=== PATIENT | male | born 1950 | race Caucasian/White ===

== ENCOUNTER → 2023-10-11 06:28 | Day surgery (SDC) | payer MEDICARE, OTHER, SELFPAY | LOC: GI 06:28 | PROVIDERS: ATTENDING PHYSICIAN Internal Medicine; FAMILY PHYSICIAN Family Medicine | DX: R63.4 Abnormal weight loss (principal); C15.5 Malignant neoplasm of lower third of esophagus; R11.2 Nausea with vomiting, unspecified; K44.9 Diaphragmatic hernia without obstruction or gangrene; K31.89 Other diseases of stomach and duodenum | CPT/HCPCS: 43239; 88305; 88342; 88360 ==

== ENCOUNTER → 2023-10-16 13:13 | Outpatient (REF) | payer MEDICARE, OTHER, SELFPAY ==
[2023-10-16 14:41] LABS: Blood Urea Nitrogen 21 mg/dl (9-20)
== END ==
LOC: REG 13:13
PROVIDERS: ATTENDING PHYSICIAN Internal Medicine; FAMILY PHYSICIAN Family Medicine
DX: C15.9 Malignant neoplasm of esophagus, unspecified (principal)
CPT/HCPCS: 36415; 82565; 84520

== ENCOUNTER → 2023-10-17 12:54 | Outpatient (REF) | payer MEDICARE, OTHER, SELFPAY | LOC: HWRAD 12:54 | PROVIDERS: ATTENDING PHYSICIAN Internal Medicine Gastroenterology; FAMILY PHYSICIAN Family Medicine | DX: C15.9 Malignant neoplasm of esophagus, unspecified (principal) | CPT/HCPCS: 71260; 74177; Q9967 ==

== ENCOUNTER 2023-10-18 06:26 | Day surgery (SDC) | payer MEDICARE, OTHER, SELFPAY ==
[2023-10-18 09:40] VITALS: BP 109/62
[2023-10-18 09:43] VITALS: BMI 28.8
[2023-10-18 09:44] VITALS: BMI 28.8
[2023-10-18 11:43] VITALS: BP 116/71
[2023-10-18 12:00] VITALS: BP 141/78
[2023-10-18 12:15] VITALS: BP 109/60
[2023-10-18 13:02] VITALS: BP 117/72
== END 2023-10-18 13:00 | disposition home or self-care (01) ==
LOC: SDS 06:26
PROVIDERS: ATTENDING PHYSICIAN Internal Medicine Gastroenterology
DX: C15.5 Malignant neoplasm of lower third of esophagus (principal); K86.89 Other specified diseases of pancreas; C77.5 Secondary and unspecified malignant neoplasm of intrapelvic lymph nodes
CPT/HCPCS: 43242; 88172; 88173; 88305

== ENCOUNTER 2023-10-27 17:56 | Inpatient (IN) | payer MEDICARE, OTHER, SELFPAY ==
[2023-10-27] VITALS (7 sets, daily range): BP systolic 117–136; BP diastolic 71–86; BMI 28.8
[2023-10-27 15:12] LABS: % Basophils 0.4 % (0-2); % Eosinophils 1.8 % (0-6); % Immature Granulocytes 0.1 % (0-0.5); % Lymphocytes 19.1 % (20.5-51.1); % Monocytes 6.1 % (1.7-9.3); % Neutrophils 72.5 % (42.2-75.2); Absolute Eosinophils 0.1 10^3/uL (0-0.7); Absolute Lymphocytes 1.4 10^3/uL (1.2-3.4); Absolute Monocytes 0.4 10^3/uL (0.1-0.6); Absolute Neutrophils 5.2 10^3/uL (1.4-6.5); Hematocrit 39.3 % (39.0-52.0); Hemoglobin 14.1 g/dL (13.0-18.0); Mean Corp Hgb Conc. 35.9 g/dL (33.0-37.0); Mean Corpuscular Hgb 32.9 pg (27.0-31.0); Mean Corpuscular Volume 91.8 fL (80.0-94.0); Mean Platelet Volume 9.1 fL (7.4-10.4); Nucleated Red Blood Cells % 0 % (-); Platelet Count 236 10^3/uL (130-400); Red Blood Cell Count 4.28 10^6/uL (4.70-6.10); Red Cell Dist. Width 12.5 % (11.5-14.5); White Blood Cell Count 7.2 10^3/uL (4.8-10.8)
[2023-10-27 15:25] LABS: ALT (SGPT) 24 U/L (0-50); AST (SGOT) 31 U/L (17-59); Albumin 4.5 g/dl (3.5-5.0); Alkaline Phosphatase 69 U/L (38-126); Blood Urea Nitrogen 20 mg/dl (9-20); Calcium 10.1 mg/dl (8.4-10.2); Carbon Dioxide 26 mmol/L (22-30); Chloride 102 mmol/L (98-107); Glucose 93 mg/dl (70-99); Potassium 5.3 mmol/L (3.5-5.1); Sodium 138 mmol/L (135-145); Total Bilirubin 0.8 mg/dl (0.2-1.3); Total Protein 6.8 g/dl (6.3-8.2); eGFR > 60.00
--- NOTE | 2023-10-27 17:11 | ED.GENMED ---
History of Present Illness
General
Chief Complaint: Esophageal Problem
Source: patient and spouse
Exam Limitations: none
Time Seen by Provider: 10/27/23 15:49
Nursing documentation reviewed up to this point in time: agreed with
History of Present Illness
History of Present Illness:
Patient is a 73-year-old male recently diagnosed with esophageal cancer the beginning of October presents to the ER for evaluation. Patient is now not able to eat and was having trouble even getting liquids down. He is scheduled to see Dr. Magdaleno
on Sunday for a consult for a feeding tube. He is being followed by Dr. Villatoro of oncology and has seen GI here at [place].
He does complain of mild nausea.
Review of Systems
Review of Systems
Allergies reviewed?: Yes
Other source history: family
All Other Systems: ROS reviewed and negative except as documented in HPI and ROS
Constitutional: Denies fever, fatigue or chills
EENT: Reports other (Difficulty swallowing food/liquids)
Respiratory: Reports no symptoms
Cardiac: Reports no symptoms
ABD/GI: Reports nausea; Denies abdominal pain or vomiting
: Reports no symptoms
Musculoskeletal: Reports no symptoms
Skin: Reports no symptoms
Neurological: Reports no symptoms
Psychiatric: Reports no symptoms
Phy Exam
General Physical Exam
General Presentation: no apparent distress
General age: appears stated age
General Skin: warm and dry
General Habitus: normal
General Mental: alert
General Hydration: appears well hydrated
Cardiovascular Exam
Cardiovascular Exam: regular rate/rhythm, no murmur and normal peripheral pulses
Pulmonary Exam
Pulmonary Exam: lungs clear and no respiratory distress
Gastrointestinal Exam
Gastrointestinal Exam: non tender and soft
Neurological Exam
Neurological Exam: alert and oriented x3
Musculoskeletal Exam
Musculoskeletal Exam: full ROM
Skin Exam
Skin Exam: normal color and warm/dry
Psychiatric Exam
Psychiatric Exam: normal mood/affect
Course
Orders/Labs/Results
Orders:
Orders
10/27/23 Dinner
NPO
Allow oral meds: Yes
Allow clear liquids: Sips of Clears
10/27/23 15:06
Complete Blood Count/With Diff Urgent
Comprehensive Metabolic Panel Urgent
10/27/23 17:12
0.9% Sodium Chloride 1000 ml [Nss] 1,000 ml IV BOLUS
Ondansetron Injectable [Zofran] 4 mg IV NOW STA
10/27/23 17:13
Electrocardiogram (*1) Stat
Reason for Study: Abdominal Pain
EKG- Treatment ONCE
10/27/23 17:27
SURGICAL CONSULT Routine
Consulting Provider: Kevin Adams
Was physician already notified: Yes
10/27/23 17:39
Admit/Transfer Patient As Directed
Co-Sign Provider:
Level of Care: Inpatient admission
Assign to:: Medical/Surgical
Physician / Group: Eyal/hospitalist
Diagnosis: dysphagia
Reason for Hospitalization: dysphagia
Expected length of stay greater than two midnights?: Yes
ELOS- Estimated Length of Stay in days: 3
I certify the patient meets the requirements for IP care: Yes
Code Status As Directed
Resuscitation Status: Full Code
PRN Pain Medication Management As Directed
May give lesser potent ordered pain med per pt: Yes
preference::
Protocol:: Medication orders for pain may be administered in a
manner that supports deferring to patient preference
when the pt is:
- Requesting an ordered lesser potent pain medication.
Least to most potent pain medications are defined
as: acetaminophen < NSAID < tramadol < opioids
(morphine, oxycodone, hydromorphone).
- Requesting a lesser dose of the same medication IF
ORDERED.
- Requesting a less intrusive route of administration
if both routes are prescribed by the provider (PO <
IV).
10/27/23 21:02
0.9% Sodium Chloride 1000 ml [Nss] 1,000 ml IV 100 mls/hr
Bisacodyl [Dulcolax] 10 mg RECTAL [id number] PRN
Docusate W/Senna [Senokot-S] 1 tablet PO BIDPRN PRN
Enoxaparin Sodium [Lovenox] 40 mg SC QPM
HydrALAZINE [Apresoline] 10 mg IV Q4HPRN PRN
Lorazepam [Ativan] 0.5 mg IV Q8HPRN PRN
Polyethylene Glycol Powder [Miralax] 17 grams PO DAILYPRN PRN
10/27/23 21:02
Activity As Directed
Activity Level: As Tolerated
Vital Signs As Directed
Frequency: Per unit guidelines
DX Deep Vein Thrombosis Video Routine
10/27/23 22:00
Cpap [RESP] HS
Patient to use own unit?: Yes
Set Pressure (cm H2O): 10
Instructions: titrate to comfort
10/28/23 00:00
Ondansetron Injectable [Zofran] 4 mg IV Q6HPRN PRN
10/28/23 06:27
Basic Metabolic Panel IN AM
Complete Blood Count/No Diff IN AM
Magnesium IN AM
10/28/23 08:00
Pantoprazole [Protonix IV] 40 mg IV DAILY
10/29/23 06:00
Basic Metabolic Panel IN AM
Complete Blood Count/No Diff IN AM
Abnormal Lab Results
10/27/23
15:06
RBC 4.28 L 10^6/uL
(4.70-6.10)
MCH 32.9 H pg
(27.0-31.0)
Lymphocytes % 19.1 L %
(20.5-51.1)
Potassium 5.3 H mmol/L
(3.5-5.1)
10/27/23 15:06
10/27/23 15:06
Vital Signs
Initial and Last Documented VS:
Initial Vital Signs
Temp Pulse Resp BP Pulse Ox
98.4 F 84 20 117/81 98
10/27/23 14:41 10/27/23 14:41 10/27/23 14:41 10/27/23 14:41 10/27/23 14:41
Last Documented Vital Signs
Temp Pulse Resp BP Pulse Ox
97.4 F 74 18 129/73 97
10/28/23 15:00 10/28/23 15:39 10/28/23 15:00 10/28/23 15:39 10/28/23 15:00
MDM/Problems Addressed
Differential Diagnosis Includes:
not limited to dysphagia, dehydration
MDM/Problems Addressed:
Patient is a 73-year-old male recent diagnosis of esophageal cancer in October is followed by oncology here at [place] as well as GI. Patient has an appointment with surgery for consult on Sunday for feeding tube because he has dysphagia however
recently dysphagia is getting worse he is not able to eat now barely able to drink water. Patient is in no acute distress abdomen soft and nontender stable labs.
will admit for hydration dysphagia. Patient was given fluids here nausea medicine here. Via [facility] text surgery, GI and oncology made aware.
Chronic conditions affecting care:
Recent diagnosis of esophageal cancer
*Pulse Oximetry
Patient hypoxic: no
*Critical Care Note
Total Time (30-74mins, 75-104mins- exclusive of procedures): Not Applicable
ED Attending Note
-
Portions of this chart may have been created with voice recognition software.� Occasional wrong word or��sound alike� substitutions may have occurred due to the inherent limitations of voice recognition software.
Discharge Plan
Departure
Patient Disposition: Admit
Date of Disposition: 10/27/23
Time of Disposition: 17:15
Admit to: Med/Surg
Admit to doctor: hospitalist
Presentation/result/management discussed w/ accepting MD/DO: Hospitalist
Patient with high blood pressure during this ER visit?: No
Condition: Fair
Covid-19: Not Applicable
Discharge Problem:
Dysphagia, Esophageal cancer
Interventions
Interventions:
*Risk Screen - Suicide Last Done: 10/27/23 18:00
*General Assessment Last Done: 10/27/23 18:00
*Neglect/Abuse Screening Last Done: 10/27/23 18:00
ED- Fall Risk Assessment Last Done: 10/27/23 18:00
*ED COVID-19 Vaccine History Last Done: 10/27/23 21:00
*Nursing Disposition Last Done: 10/27/23 20:19
BY-Fsuzup-Xfyrpokicn Assessment Last Done: 10/27/23 18:00
Discharge Date and Time
Discharge Date/Time: 10/27/23 20:19
--- NOTE | 2023-10-27 17:24 | HPS.HSE ---
Family Physician
-
Family Physician: Sony Montoya
Chief Complaint
-
dysphagia
History of Present Illness
HPI: 73-year-old male who was recently diagnosed with esophageal cancer in October 2023, other PMH include hypertension, KAILEE, hyperlipidemia, depression; p/w inability to eat or drink liquid. He complains of mild nausea.
Denies to other symptoms.
He is scheduled to see Dr. Magdaleno on Saturday 10/28 for feeding tube eval. He is being followed by Dr. Villatoro from oncology.
Medical History
Past Medical History
Past Medical History: Reports Other
Additional Past Medical History:
esophageal cancer
hypertension,
KAILEE,
hyperlipidemia,
depression
Past Surgical History: Reports Other
Additional Past Surgical History:
Left knee and left shoulder surgery
Social History
Tobacco: Non-smoker
Alcohol: None
Personal:
Living: With Family ()
Family History
Family History: Not pertinent
Allergies / Home Medications
Allergies reflects when Allergies were last updated in [facility].
Home Medications with original date entered in [facility]
Allergy/Medication List:
Medications on admission are unable to be verified or confirmed at this time.
Review of Systems
-
Abdomen/GI: Reports Nausea and Other (Dysphagia to solid and liquid)
Physical Exam
Vital Signs
Vital Signs
Temp Pulse Resp BP Pulse Ox
36.9 C 84 20 117/81 98
10/27/23 14:41 10/27/23 14:41 10/27/23 14:41 10/27/23 14:41 10/27/23 14:41
Physical Exam
General: Well Developed, Well Nourished, No Apparent Distress, Comfortable and Conversant
HEENT: NormoCephalic, Moist mucous membranes, Atraumatic, Nose Appears Normal and Ears Appear Normal
Respiratory: Clear and Non Labored Respirations; No Accessory Resp Muscle Use
Cardiac: S1/S2 and Regular Rhythm; No Murmur or Rub
GI: Soft, Non Tender, Non Distended and Normal Bowel Sounds; No Organomegaly
Rectal: Deferred by Provider
Musculoskeletal: No Edema
Skin: Warm and Dry; No Rash
Neuro: Awake and Alert
Psych: Calm and Intact Judgment/Insight
Laboratory Results
-
10/27/23 15:06
10/27/23 15:06
Laboratory Results
Total Bilirubin 0.8 mg/dl (0.2-1.3) 10/27/23 15:06
AST 31 U/L (17-59) 10/27/23 15:06
ALT 24 U/L (0-50) 10/27/23 15:06
Alkaline Phosphatase 69 U/L (38-126) 10/27/23 15:06
Data Reviewed
-
Lab Data: Labs Reviewed by me
Impression/Plan
-
HPI: 73-year-old male who was recently diagnosed with esophageal cancer in October 2023, other PMH include hypertension, KAILEE, hyperlipidemia, depression; p/w inability to eat or drink liquid. He complains of mild nausea.
Denies to other symptoms.
He is scheduled to see Dr. Magdaleno on Saturday 10/28 for feeding tube eval. He is being followed by Dr. Villatoro from oncology.
A/P:
# Dysphagia due to esophageal cancer
General Surgery consult for PEG tube eval
keep n.p.o. for now
Continue IV fluid
IV PPI for gastric protection
# hypertension
Will use IV hydralazine as needed for BP control
# KAILEE
Cont CPAP that was brought in from home
# hyperlipidemia
# anxiety/depression
replace [employer]EL[employer] PO Ativan with low dose IV Ativan PRN
DVT ppx: Lovenox SQ
FC
[2023-10-27] MEDS: ZOFRAN 4 MG IV (17:44)
[2023-10-27] MEDS: NSS 1000 IV ×2 (17:48→22:24)
--- NOTE | 2023-10-27 21:00 | PTCARENOTE ---
Patient arrived to [facility]- from ED via stretcher, alert and oriented, family at bedside. Patient ambulated from stretcher to bed with standby assist. Patient with no complaints at this time. Med surg orders, HRR, lungs clear. Difficulty swallowing and
keeping food/drink down at home prompted admission -- patient states he has appointment Saturday 10/[address] Magdaleno for evaluation of PEG tube. Recently diagnosed with Esophageal cancer. Patient has own bottle of Ativan at bedside -- explained
policy and procedure of sending to pharmacy -- patient adamant on using his own Ativan while here. Spoke with SALINA Yoder, orders changed to reflect patient using own controlled medication. Pharmacy verified, medication stored in locked cabinet.
IVFs started per MD orders, patient resting in bed comfortably using own CPAP from home -- respiratory aware. Call [place] within reach. Will monitor.
[2023-10-27] MEDS: LOVENOX 40 MG SC (22:21)
[2023-10-27] MEDS: NON-FORMULARY ITEM 1 UNIT PO (23:27)
[2023-10-28 07:00] VITALS: BP 144/79
[2023-10-28 07:00] LABS: Hematocrit 39.2 % (39.0-52.0); Mean Corp Hgb Conc. 35.7 g/dL (33.0-37.0); Mean Corpuscular Volume 95.1 fL (80.0-94.0); Mean Platelet Volume 9.7 fL (7.4-10.4); Platelet Count 216 10^3/uL (130-400); Red Blood Cell Count 4.12 10^6/uL (4.70-6.10); Red Cell Dist. Width 12.2 % (11.5-14.5); White Blood Cell Count 5.8 10^3/uL (4.8-10.8)
[2023-10-28 07:29] LABS: Blood Urea Nitrogen 18 mg/dl (9-20); Calcium 9.6 mg/dl (8.4-10.2); Carbon Dioxide 26 mmol/L (22-30); Chloride 104 mmol/L (98-107); Estimated Creatinine Clearance 73 ml/min; Glucose 73 mg/dl (70-99); Magnesium 2.2 mg/dl (1.6-2.3); Sodium 140 mmol/L (135-145); eGFR > 60.00
[2023-10-28] MEDS: PROTONIX IV 40 MG IV (08:08)
[2023-10-28] MEDS: NSS (PRESERVATIVE FREE) 10 ML IV (08:08)
--- NOTE | 2023-10-28 10:02 | W.PN.HOSP.TC ---
Today's Communication/Plan
-
see A/P
Assessment / Plan
Assessment / Plan
HPI: 73-year-old male who was recently diagnosed with esophageal cancer in October 2023, other PMH include hypertension, KAILEE, hyperlipidemia, depression; p/w inability to eat or drink liquid. He complains of mild nausea.
Denies to other symptoms.
He is scheduled to see Dr. Magdaleno on Saturday 10/28 for feeding tube eval. He is being followed by Dr. Villatoro from oncology.
A/P:
# Dysphagia due to esophageal cancer
General Surgery consult for PEG tube eval
keep n.p.o. for now
Continue IV fluid
IV PPI for gastric protection
# hypertension
Will use IV hydralazine as needed for BP control
# KAILEE
Cont CPAP that was brought in from home
# hyperlipidemia
# anxiety/depression
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
DVT ppx: Lovenox SQ
FC
DW son at bedside. Answered all questions.
Anticipated Discharge: 24 - 48 hours
Subjective/Interval History
-
Date of Service: October 28, 2023
Objective Data
-
Labs:
Laboratory Results
10/28/23
06:27
WBC 5.8
Hgb 14.0
Hct 39.2
Plt Count 216
Sodium 140
Potassium 5.0
Chloride 104
Carbon Dioxide 26
BUN 18
Creatinine 1.0
Glucose 73
Calcium 9.6
Vital Signs:
Vital Signs
Temp Pulse Resp BP Pulse Ox
36.6 C 73 18 144/79 96
10/28/23 07:00 10/28/23 07:00 10/28/23 07:00 10/28/23 07:00 08/25/24 07:45
I&O
10/27/23 10/28/23 10/29/23
06:59 06:59 06:59
Intake Total 0 / 0
Balance 0 / 0
Review of Systems
-
Abdomen/GI: Reports Other (dysphagia)
Physical Exam
-
General: Well Developed, Well Nourished, No Apparent Distress, Comfortable and Conversant; Negative Respiratory Distress
HEENT: Normocephalic, Atraumatic, Nose Appears Normal and Ears Appear Normal; Negative Oxygen
Respiratory: Clear to Auscultation and Non Labored Respirations; Negative Accessory Resp Muscle Use
Cardiac: Regular Rhythm and S1/S2
GI: Soft, Nontender, Nondistended and Normal Bowel Sounds
Skin: Warm and Dry
Neuro: Awake, Alert, Oriented and AO x 3
Psych: Calm and Intact Judgement/Insight
Data Reviewed
-
Labs: Labs Reviewed by me
[2023-10-28] MEDS: NSS 1000 IV ×2 (11:02→21:39)
--- NOTE | 2023-10-28 11:34 | CON.GS ---
Consultation
-
Date/Time Consultation Requested: 10/27/23 1727
Date/Time Consultation Performed: 10/27/23 0845
Requesting Provider: Eyal
Medical History
-
Chief Complaint: Inability to swallow
History of Present Illness:
Mr Carlos is a 73 yo male with a h/o UHR repair with mesh and recently diagnosed esophageal cancer earlier this month who presents with progressive difficulty swallowing. He has been following with Dr. Villatoro as an outpatient with plans to begin
chemotherapy in the near future. He had an appointment with Dr. Magdaleno tomorrow scheduled as an OP to discuss J-tube placement prior to chemotherapy given progressive dysphagia. He was initially tolerating soft foods and liquids at home but over
the past 3-4 days, he has not even been able to tolerate liquids causing him to present through the ED last night for evaluation. He currently denies nausea. He denies vomiting or pain.
Past Medical History
Past Medical History: HTN, Hypercholesterolemia and Other (KAILEE)
Past Surgical History: Hernia Repair (UHR with mesh about 20 years ago)
Social History
Tobacco: Non-Smoker
Alcohol: None
Living: With Family
Allergies / Home Medications
Allergy/AdvReac Type Severity Reaction Status Date / Time
shellfish derived Allergy Intermediate Vomiting Verified 10/27/23 14:41
iodine Allergy Mild Hives Verified 10/27/23 14:40
NKA - No Known Allergies Allergy Pharmacy Uncoded 10/18/23 09:41
to Review
�Medication �Instructions �Recorded �Confirmed �Type
escitalopram oxalate 20 mg tablet 20 mg PO DAILY Depression 10/18/23 10/27/23 History
lisinopril 20 mg tablet 20 mg PO DAILY Blood Pressure 10/18/23 10/27/23 History
memantine 5 mg tablet 5 mg PO DAILY Dementia 10/18/23 10/27/23 History
ondansetron 4 mg disintegrating 4 mg translingual DAILYPRN PRN 10/18/23 10/27/23 History
tablet nausea/vomiting
pantoprazole 40 mg tablet,delayed 40 mg PO DAILY Gastrointestinal 10/18/23 10/27/23 History
release Issue
polyethylene glycol 3350 17 gram 8.5 g PO BID Constipation 10/18/23 10/27/23 History
oral powder packet (Miralax)
rosuvastatin 5 mg tablet 5 mg PO DAILY High Cholesterol 10/18/23 10/27/23 History
sucralfate 100 mg/mL oral 10 ml PO ACHS Gastrointestinal 10/18/23 10/27/23 History
suspension Issue
lorazepam 1 mg tablet 1 mg PO BIDPRN PRN anxiety 10/27/23 10/27/23 History
Review of Systems
-
History Source: Patient and Family
All other systems: Negative unless noted
A 10 point review of systems was completed, and was negative except as per HPI.
Physical Exam
Vital Signs
Temp Pulse Resp BP Pulse Ox
97.8 F 73 18 144/79 96
10/28/23 07:00 10/28/23 07:00 10/28/23 07:00 10/28/23 07:00 10/28/23 07:45
10/27/23 10/28/23 10/29/23
06:59 06:59 06:59
Actual Weight 94.892 kg
Body Mass Index (BMI) 28.8
Lab Results
10/28/23 06:27
10/28/23 06:27
WBC 5.8 10^3/uL (4.8-10.8) 10/28/23 06:27
Hgb 14.0 g/dL (13.0-18.0) 10/28/23 06:27
Hct 39.2 % (39.0-52.0) 10/28/23 06:27
Plt Count 216 10^3/uL (130-400) 10/28/23 06:27
Abs Immat Gran (auto) 0.0 10^3/uL (0-0.05) 10/27/23 15:06
Neutrophils % 72.5 % (42.2-75.2) 10/27/23 15:06
Physical Exam
General: Well Developed and Well Nourished
HEENT: Moist Mucous Membranes
Respiratory: Non Labored Respirations
GI: Soft, Non Tender and Non Distended
Skin: Warm and Dry
Neuro: Awake, Alert and AO x 3
Psych: Calm
Data Reviewed
-
Labs: Labs Reviewed by me, Discussed with Physician, Discussed with Patient and Discussed with Family
Old Records: Reviewed
Assessment / Plan
-
73 yo male with h/o UHR with mesh and newly diagnosed esophageal cancer with progressively worsening dysphagia presenting d/t inability to tolerate PO intake for 3-4 days.
AFVSS. labs stable.
--Continue NPO/IVF
--Pending OR availability will plan laparoscopic placement of J-tube in the OR tomorrow vs Sunday
--Medical management as per primary team
[2023-10-28 15:00] VITALS: BP 106/64
[2023-10-28 15:39] VITALS: BP 129/73
--- NOTE | 2023-10-28 16:09 | CM ---
Reviewed chart, patient stated that he lives in a two story home with one step to enter. He described himself as independent with ADLs, personal care, dressing and bathing. He ambulates without device. He can cook, clean, do ecotherapist and
laundry. He can drive and can get to his appointments and does all of his shopping.
Patient denied DME in his home.
He has never had VN services
He has not been to a SNF.
Patient has a prescription plan and uses, [facility] for all of his medication.
Patient's PCP is Dr. Sony Montoya.
Plan: Case management will continue to follow and assist with discharge planning. Home when Peg placed and medically stable.
[2023-10-28] MEDS: LOVENOX 40 MG SC (17:08)
[2023-10-28] MEDS: NON-FORMULARY ITEM 1 UNIT PO (21:35)
[2023-10-28 23:29] VITALS: BP 144/85
[2023-10-29] VITALS (10 sets, daily range): BP systolic 111–146; BP diastolic 56–90; BMI 28.8
[2023-10-29 07:24] LABS: INR 1.07; PT 13.7 Sec (11.4-14.6)
[2023-10-29 07:25] LABS: APTT 29.6 Sec (23.4-35.0)
--- NOTE | 2023-10-29 07:31 | W.SUR.PREOP ---
Pre-Operative Surgical Note
-
I have examined this patient prior to the performance of the scheduled procedure. Patient tentatively added on for a laparoscopic jejunostomy tube placement today.
The patient's condition is unchanged from the time of the current History and
Physical and the patient is able to undergo the scheduled procedure.
[2023-10-29 07:39] LABS: Hematocrit 38.4 % (39.0-52.0); Hemoglobin 13.7 g/dL (13.0-18.0); Mean Corp Hgb Conc. 35.7 g/dL (33.0-37.0); Mean Corpuscular Hgb 33.2 pg (27.0-31.0); Mean Platelet Volume 9.4 fL (7.4-10.4); Platelet Count 224 10^3/uL (130-400); Red Blood Cell Count 4.13 10^6/uL (4.70-6.10); Red Cell Dist. Width 12.3 % (11.5-14.5); White Blood Cell Count 6.9 10^3/uL (4.8-10.8)
[2023-10-29] MEDS: NSS 1000 IV (07:44)
[2023-10-29] MEDS: NSS (PRESERVATIVE FREE) 10 ML IV (07:45)
[2023-10-29] MEDS: PROTONIX IV 40 MG IV (07:45)
[2023-10-29 08:29] LABS: Blood Urea Nitrogen 16 mg/dl (9-20); Calcium 9.4 mg/dl (8.4-10.2); Carbon Dioxide 22 mmol/L (22-30); Chloride 105 mmol/L (98-107); Estimated Creatinine Clearance 81 ml/min; Glucose 53 mg/dl (70-99); Sodium 141 mmol/L (135-145); eGFR > 60.00
[2023-10-29] MEDS: D5/0.9% SODIUM CHLORIDE 1000 IV (08:49)
--- NOTE | 2023-10-29 10:28 | W.PN.HOSP.TC ---
Today's Communication/Plan
-
see outlined plan
Assessment / Plan
Assessment / Plan
Assessment:
Dysphagia due to esophageal cancer (Stage 3 per family)
- GS consulted for feeding tube placement today
- dietary consult for TF recs - bolus feeds at home
- continue IVF with dextrose for low sugars
- continue IV PPI
Essential HTN
- holding BP meds
- IV hydralazine prn
KAILEE on home CPAP
HLD - hold statin
anxiety/depression
- replace CAPTAIN/AIRLINE PILOT PO Ativan with low dose IV Ativan PRN
- holding Lexapro
- hold Memantine (for memory issues)
Hyperkalemia - resolved
DVT ppx: Lovenox
Code: Full
Anticipated Discharge: > 48 hours
Subjective/Interval History
-
Date of Service: October 29, 2023
no new complaints
Objective Data
-
Labs:
Laboratory Results
10/29/23
06:32
WBC 6.9
Hgb 13.7
Hct 38.4 L
Plt Count 224
PT 13.7
INR 1.07
APTT 29.6
Sodium 141
Potassium 5.0
Chloride 105
Carbon Dioxide 22
BUN 16
Creatinine 0.9
Glucose 53 L*
Calcium 9.4
Vital Signs:
Vital Signs
Temp Pulse Resp BP Pulse Ox
97.5 F 72 12 139/65 96
10/29/23 07:00 10/29/23 07:00 10/29/23 07:00 10/29/23 07:00 10/29/23 07:30
I&O
10/28/23 10/29/23 10/30/23
06:59 06:59 06:59
Intake Total 1200 / 1200
Output Total 1050 / 1050
Balance 150 / 150
Physical Exam
-
General: No Apparent Distress
HEENT: Normocephalic and Atraumatic
Respiratory: Negative Wheezes
Cardiac: Regular Rhythm and S1/S2
GI: Soft and Nontender
Musculoskeletal: No Edema
Neuro: AO x 3
Hematologic / Lymphatic: No Lymphadenopathy
Psych: Calm
Data Reviewed
-
Total Time Spent with Patient (in minutes): 41
Labs: Labs Reviewed by me
[2023-10-29 12:15] LABS: Glucose - Point of Care 72 mg/dl (70-99)
--- NOTE | 2023-10-29 13:18 | CM ---
Spoke with attending who stated that patient will go home with tube feedings. Will ask him what VN he would prefer as he will need them post discharge.
Plan: Case management will continue to follow and assist with discharge planning. Home with tube feeds.
--- NOTE | 2023-10-29 14:38 | W.IMMPOSTOP ---
Surgical Immed Post Op Note
-
Primary Surgeon: Kevin Adams MD
Assisting Surgeon: None
Pre-op Diagnosis: Esophageal cancer, dysphagia/malnutrition
Post-op Diagnosis: Same
Procedure Performed: Laparoscopic jejunostomy tube placement
Anesthesia Type: General
Specimen / Cultures: None
Estimated Blood Loss: 3 cc
Complications: None
Operative Findings: Three 5 mm port. Krista jejunostomy tube placed. Balloon inflated to 3 cc of sterile water. Anti-torsion stitch placed
POST OP PLAN:
Imaging: None
Labs: Routine AM
Diet: Okay to start trickle tube feeds tonight 10/29/2023, advance to goal as tolerated tomorrow. Okay for p.o. diet as tolerated. No meds (including liquid ones) through the J-tube as they will clog the tube. Flush J-tube often especially after
each use.
Analgesia: IV Tylenol, Toradol, Dilaudid as needed
Neuro/vascular checks: q4h
AC/AP: Hold Therapeutic AC, Ok for DVT PPx
Activity: Ad Manju
Wound/Incisions/Drains: Routine
Abx: None
Dispo: RNF
--- NOTE | 2023-10-29 14:42 | OR.RPT ---
Addendum entered and electronically signed by Kevin Adams MD 10/31/23 11:08:
Please remove malnutrition as one of the pre/post operative diagnoses.
Original Note:
Operative Report
Operative Report
Patient Name: Francisco Carlos
: 1950
Date of Operation: 10/29/2023
Preoperative Diagnosis: Esophageal cancer, dysphagia, malnutrition
Postoperative Diagnosis: Same
Procedure(s):
1. Laparoscopic jejunostomy tube (Krista technique)
Surgeon(s):
Dr. Adams
Audit Associate(s):
PURA Streeter
Anesthesia: General
Estimated Blood Loss: 3 cc
Urine Output: None
Drains/Lines/Implants: 16 Venezuelan J-tube with 3 cc of sterile water
Specimens:
None
HPI/Surgical Indications:
This is a 73-year-old male with recently diagnosed esophageal cancer that has progressively worsened dysphagia now with malnutrition. General surgery consulted to place a laparoscopic jejunostomy tube. Risks/Benefits/Alternatives were discussed at
length, and the patient agreed to proceed with surgery.
Operative Findings: Three 5 mm ports. Krista jejunostomy tube placed. Balloon inflated to 3 cc of sterile water. Anti-torsion stitch placed
Procedure Description:
The patient was brought to the Operating Room and placed in the supine position with the right arm tucked. IV antibiotics were infused and Venodyne stockings placed. Following uneventful induction of general endotracheal anesthesia, the abdomen
was prepped and draped in the usual sterile fashion. A team timeout was performed confirming the patient's name, procedure and that appropriate preoperative medications have been administered. The abdomen was entered using left upper quadrant
Veress technique which required a single pass followed by a right upper quadrant 5 mm Optiview entry. Pneumoperitoneum to 15 mmHg was established and confirmed that no injury had occurred on entry. The patient had a history of an open umbilical
hernia repair but no mesh or adhesions were noted in the midline. We placed 2 additional 5 mm ports in the left and right lower quadrants. Patient was placed in Trendelenburg and the transverse mesocolon was identified followed by the ligament of
Treitz. Once we confirmed our orientation we identified a segment of jejunum roughly 20 cm from the ligament of Treitz and saw that it could oppose the anterior abdominal wall without any tension. We then placed 4 Krista/stay sutures around our
planned enterotomy site with 2-0 silk, as well as one distal antitorsion stitch and brought them through the anterior abdominal wall using a Senthil Sanchez suture passing device. Then using a laparoscopic dilator kit we passed a 16 Venezuelan
jejunostomy tube through the abdominal wall into our enterotomy and passed it distally through the small bowel, this was a little challenging and to take some manipulation of the bowel to ensure that the tube lay straight without coiling or kinking.
Satisfied the balloon was inflated with 3 cc of sterile water and the stay sutures were tied down. At this point the ports were removed under direct visualization. The lower midline port was closed with simple interrupted 2-0 PDS suture. The
port sites at the skin level was then closed with 4 Monocryl followed by glue. The jejunostomy port site was dressed with a single drain sponge. An abdominal binder was placed to help protect the jejunostomy tube from inadvertent dislodgment.
Overall, the patient tolerated the procedure well and was taken to the Recovery Room postoperatively in stable condition.
I was the attending physician and performed the procedure with no assistance. I was present for all portions of the case
Kevin Adams MD
[2023-10-29] MEDS: LOVENOX 40 MG SC (17:47)
[2023-10-29] MEDS: NON-FORMULARY ITEM PO (22:56)
[2023-10-30 03:00] VITALS: BP 144/80
[2023-10-30] MEDS: D5/0.9% SODIUM CHLORIDE 1000 IV (04:05)
[2023-10-30 06:38] LABS: Hematocrit 37.8 % (39.0-52.0); Hemoglobin 13.9 g/dL (13.0-18.0); Mean Corp Hgb Conc. 36.8 g/dL (33.0-37.0); Mean Corpuscular Hgb 33.8 pg (27.0-31.0); Mean Platelet Volume 9.6 fL (7.4-10.4); Platelet Count 224 10^3/uL (130-400); Red Blood Cell Count 4.11 10^6/uL (4.70-6.10); Red Cell Dist. Width 11.9 % (11.5-14.5)
[2023-10-30 07:02] LABS: Blood Urea Nitrogen 13 mg/dl (9-20); Calcium 9.5 mg/dl (8.4-10.2); Carbon Dioxide 24 mmol/L (22-30); Chloride 103 mmol/L (98-107); Estimated Creatinine Clearance 92 ml/min; Glucose 186 mg/dl (70-99); Potassium 4.7 mmol/L (3.5-5.1); Sodium 139 mmol/L (135-145); eGFR > 60.00
[2023-10-30 07:20] VITALS: BP 150/78
[2023-10-30] MEDS: PROTONIX IV 40 MG IV (09:06)
[2023-10-30] MEDS: NSS (PRESERVATIVE FREE) 10 ML IV (09:06)
[2023-10-30 11:00] VITALS: BP 138/78
--- NOTE | 2023-10-30 12:30 | PTCARENOTE ---
1230 Tube feeding increased to 40ml/hr. No residual aspirated from J tube. Patient and family made aware the goal in 70ml/hr. Patient verbalized understanding.
--- NOTE | 2023-10-30 12:43 | W.PN.HOSP.TC ---
Addendum entered and electronically signed by Carla Nieves MD 10/30/23 15:34:
enteral feedings will be required greater than 90 days
Original Note:
Today's Communication/Plan
-
advance TF to goal to assess tolerance
DC planning
Assessment / Plan
Assessment / Plan
Assessment:
Dysphagia due to esophageal cancer (Stage 3 per family)
- s/p Laparoscopic jejunostomy tube placement 10/28. Follow GS recs
- continue TF, advance to goal
- will need home tube feeds setup, along with VN and prescribing doctor sorted before discharge
- meds: orally as tolerated
Essential HTN
- resume BP meds orally
- IV hydralazine prn
KAILEE on home CPAP
HLD - resume statin
anxiety/depression
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
- resume Lexapro
- resume Memantine (for memory issues)
Hyperkalemia - resolved
DVT ppx: Lovenox
Code: Full
Anticipated Discharge: 24 - 48 hours
Subjective/Interval History
-
Date of Service: October 30, 2023
tolerating trickle feeds
Objective Data
-
Labs:
Laboratory Results
10/30/23
06:14
WBC 8.0
Hgb 13.9
Hct 37.8 L
Plt Count 224
Sodium 139
Potassium 4.7
Chloride 103
Carbon Dioxide 24
BUN 13
Creatinine 0.8
Glucose 186 H
Calcium 9.5
Vital Signs:
Vital Signs
Temp Pulse Resp BP Pulse Ox
98.1 F 72 17 138/78 96
10/30/23 11:00 10/30/23 11:00 10/30/23 11:00 10/30/23 11:00 10/30/23 11:00
I&O
10/29/23 10/30/23 10/31/23
06:59 06:59 06:59
Intake Total 1200 / 1200 1060 / 1060
Output Total 1050 / 1050 1225 / 1225
Balance 150 / 150 -165 / -165
Physical Exam
-
General: No Apparent Distress
HEENT: Normocephalic and Atraumatic
Respiratory: Negative Wheezes
Cardiac: Regular Rhythm and S1/S2
GI: Soft and Other (J tube)
Genito-urinary: No Costovertebral Tender
Musculoskeletal: No Edema
Neuro: AO x 3
Hematologic / Lymphatic: No Lymphadenopathy
Psych: Calm
Data Reviewed
-
Total Time Spent with Patient (in minutes): 41
Labs: Labs Reviewed by me
--- NOTE | 2023-10-30 13:22 | W.PN.GS2 ---
Today's Communication / Plan
-
Tube feeds to goal, dispo planning
Assessment / Plan
-
This is a 73-year-old male with a recent diagnosis of esophageal cancer now with dysphagia. Postoperative day 1 from a laparoscopic jejunostomy tube placement. Doing well, expected postoperative course.
Okay to advance tube feeds to goal.
Begin dispo planning, will need to equipment and VNA set up for home.
Patient can follow-up with me in 2 to 3 weeks, happy to coordinate visits with oncology.
All questions answered, patient agreeable to plan of care above.
Discharge instructions updated and reviewed with patient and over the phone.
Time Spent
Total Time Spent with Patient (in minutes): 20
Subjective Data
-
Date of Service: October 30, 2023
Interval Events:
No acute events overnight. Slept well. Pain Controlled. Denies Nausea/Vomiting, +bowel function. Tolerating tube feeds at a rate of 20 cc/h.
Objective Data
-
Intake and Output
10/29/23 10/30/23 10/31/23
06:59 06:59 06:59
Intake Total 1200 / 1200 1060 / 1060
Output Total 1050 / 1050 1225 / 1225
Balance 150 / 150 -165 / -165
Intake:
Oral fluids 0 / 0 0 / 0
IV fluids (Total) 1200 / 1200 1060 / 1060
Norm 100 / 100
IV piggybacks 0 / 0
Output:
Urine, Voided 1050 / 1050 1225 / 1225
Other:
Number of approximated MODERATE 2
amounts of urine
Vital Signs
Temp Pulse Resp BP Pulse Ox
98.1 F 72 17 138/78 96
10/30/23 11:00 10/30/23 11:00 10/30/23 11:00 10/30/23 11:00 10/30/23 11:00
Lab Results
10/30/23 06:14
10/30/23 06:14
Calcium 9.5 mg/dl (8.4-10.2) 10/30/23 06:14
Magnesium 2.2 mg/dl (1.6-2.3) 10/28/23 06:27
Total Bilirubin 0.8 mg/dl (0.2-1.3) 10/27/23 15:06
AST 31 U/L (17-59) 10/27/23 15:06
ALT 24 U/L (0-50) 10/27/23 15:06
Alkaline Phosphatase 69 U/L (38-126) 10/27/23 15:06
Total Protein 6.8 g/dl (6.3-8.2) 10/27/23 15:06
Albumin 4.5 g/dl (3.5-5.0) 10/27/23 15:06
Physical Exam
-
GENERAL/NEURO: Awake, Alert, no distress
CHEST: Unlabored breathing on RA
ABDOMEN: Soft, Non-Tender, Non-Distended, incisions clean dry and intact. Jejunostomy feeding tube in place
[2023-10-30] MEDS: LEXAPRO 20 MG PO (13:54)
--- NOTE | 2023-10-30 14:57 | CM ---
Addendum entered by Quin Newman 10/30/23 16:33:
Left VM for primer and powder canning leader x [phone]
spoke with GI office, they will follow for enteral feeds post hospitalization as long as a primer and powder canning leader is following.
Faxed info to [facility].
Need to fax nutrition documentation and order sheet to [facility] in am.
Original Note:
Spoke with Patient bedside.
Daughter Julieta on the phone, son in law in the room.
Patient will be d/c home to former spouses home
Address: [address] [address]
VN options discussed with patient, [facility] chosen referral sent.
Options reviewed for tube feeds/nutrition- [facility].
Spoke with Claire from [facility]
Per Claire/[facility] they will need:
-48 hours to get medicare approval, will probably be covered 80% by medicare, 20% by secondary.
-peg tube surgery report
-MD note on progress note stating why enteral feeds are required and must include >90 days
-H+P
-Dietary/nutrition notes
-Swallow study if done
-MD following for enteral feed orders
-Bolus vs continuous
-VN agency
CM will update MD and family.
TC to [facility] [phone]- spoke with emil Moya to see if they will be ordering Tube feedings post d/c.
Plan: home with VN and enteral feeds
[facility]

[facility]
fax# [phone]
[2023-10-30 15:15] VITALS: BP 141/84
[2023-10-30] MEDS: LOVENOX 40 MG SC (17:00)
[2023-10-30] MEDS: TYLENOL ORAL SOLUTION 650 MG PO (17:00)
--- NOTE | 2023-10-30 17:25 | PTCARENOTE ---
Patient c/o mild abdominal discomfort around J tube site. Tylenol given. Patient spitting up large amounts of clear sputum, no tube feed seen in basin. J tube checked and no residual noted. Patient has no c/o nausea, just intermittent throat clear
and spitting up sputum. Will continue to monitor.
[2023-10-30] MEDS: NON-FORMULARY ITEM 1 UNIT PO (21:03)
[2023-10-30] MEDS: FLUSH (NSS) 2 FLUSH IV ×2 (21:06→23:06)
[2023-10-30] MEDS: ZOFRAN 4 MG IV (21:06)
[2023-10-30 23:00] VITALS: BP 178/86
[2023-10-30] MEDS: APRESOLINE 10 MG IV (23:05)
[2023-10-31 00:45] VITALS: BP 101/52
[2023-10-31 07:19] LABS: Hematocrit 37.6 % (39.0-52.0); Hemoglobin 13.7 g/dL (13.0-18.0); Mean Corp Hgb Conc. 36.4 g/dL (33.0-37.0); Mean Corpuscular Hgb 33.7 pg (27.0-31.0); Mean Corpuscular Volume 92.4 fL (80.0-94.0); Mean Platelet Volume 9.9 fL (7.4-10.4); Platelet Count 233 10^3/uL (130-400); Red Blood Cell Count 4.07 10^6/uL (4.70-6.10); Red Cell Dist. Width 12.6 % (11.5-14.5); White Blood Cell Count 8.8 10^3/uL (4.8-10.8)
[2023-10-31 07:32] LABS: Blood Urea Nitrogen 14 mg/dl (9-20); Calcium 9.5 mg/dl (8.4-10.2); Carbon Dioxide 27 mmol/L (22-30); Chloride 104 mmol/L (98-107); Estimated Creatinine Clearance 92 ml/min; Glucose 118 mg/dl (70-99); Potassium 3.6 mmol/L (3.5-5.1); Sodium 142 mmol/L (135-145); eGFR > 60.00
[2023-10-31 07:46] VITALS: BP 123/75
[2023-10-31] MEDS: NAMENDA 5 MG PO (08:04)
[2023-10-31] MEDS: PROTONIX 40 MG PO (08:04)
[2023-10-31] MEDS: ZESTRIL 20 MG PO (08:04)
[2023-10-31] MEDS: LEXAPRO 20 MG PO (08:04)
--- NOTE | 2023-10-31 10:26 | W.PN.HOSP.TC ---
Today's Communication/Plan
-
medically stable for DC with home tube feeds pending setup
Assessment / Plan
Assessment / Plan
Assessment:
Dysphagia due to esophageal cancer (Stage 3 per family)
- s/p Laparoscopic jejunostomy tube placement 10/28. Follow GS recs
- is tolerating TF which are at goal
- will need home tube feeds setup, along with VN, formula, prescribing MD etc setup. CM assisting.
- meds: orally as tolerated
Essential HTN
- resume BP meds orally
- IV hydralazine prn
KAILEE on home CPAP
HLD - resume statin
anxiety/depression
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
Hyperkalemia - resolved
DVT ppx: Lovenox
Code: Full
Anticipated Discharge: 24 - 48 hours
Subjective/Interval History
-
Date of Service: October 31, 2023
tolerating TF well
Objective Data
-
Labs:
Laboratory Results
10/31/23
06:41
WBC 8.8
Hgb 13.7
Hct 37.6 L
Plt Count 233
Sodium 142
Potassium 3.6
Chloride 104
Carbon Dioxide 27
BUN 14
Creatinine 0.8
Glucose 118 H
Calcium 9.5
Vital Signs:
Vital Signs
Temp Pulse Resp BP Pulse Ox
97.6 F 71 16 123/75 95
10/31/23 07:46 10/31/23 08:04 10/31/23 07:46 10/31/23 08:04 10/31/23 07:46
I&O
10/30/23 10/31/23 11/01/23
06:59 06:59 06:59
Intake Total 1060 / 1060 1320 / 1320
Output Total 1225 / 1225 300 / 300
Balance -165 / -165 1020 / 1020
Physical Exam
-
General: No Apparent Distress
HEENT: Normocephalic and Atraumatic
Respiratory: Negative Wheezes
Cardiac: Regular Rhythm
GI: Soft
Genito-urinary: No Costovertebral Tender
Musculoskeletal: No Edema
Neuro: AO x 3
Hematologic / Lymphatic: No Lymphadenopathy
Psych: Calm
Data Reviewed
-
Total Time Spent with Patient (in minutes): 41
Labs: Labs Reviewed by me
--- NOTE | 2023-10-31 10:43 | W.PN.GS2 ---
Today's Communication / Plan
-
Dispo planning per CM
Pls call with ?s
Assessment / Plan
-
This is a 73-year-old male with a recent diagnosis of esophageal cancer now with dysphagia. Postoperative day 2 from a laparoscopic jejunostomy tube placement. Doing well, expected postoperative course.
Cont tube feeds at goal.
Dispo planning, will need to equipment and VNA set up for home.
Patient can follow-up with Dr Adams in 2 to 3 weeks, happy to coordinate visits with oncology.
All questions answered, patient agreeable to plan of care above.
Discharge instructions updated and reviewed with patient and over the phone.
Subjective Data
-
Date of Service: October 31, 2023
AFVSS, no complaints, TF @ goal and tolerating well
Objective Data
-
Intake and Output
10/30/23 10/31/23 11/01/23
06:59 06:59 06:59
Intake Total 1060 / 1060 1320 / 1320
Output Total 1225 / 1225 300 / 300
Balance -165 / -165 1020 / 1020
Intake:
Oral fluids 0 / 0 240 / 240
IV fluids (Total) 1060 / 1060
Norm 100 / 100
Tube feeding 780 / 780
Feeding tube flush amount 300 / 300
Output:
Urine, Voided 1225 / 1225 300 / 300
Vital Signs
Temp Pulse Resp BP Pulse Ox
97.6 F 71 16 123/75 95
10/31/23 07:46 10/31/23 08:04 10/31/23 07:46 10/31/23 08:04 10/31/23 07:46
Lab Results
10/31/23 06:41
10/31/23 06:41
Calcium 9.5 mg/dl (8.4-10.2) 10/31/23 06:41
Magnesium 2.2 mg/dl (1.6-2.3) 10/28/23 06:27
Total Bilirubin 0.8 mg/dl (0.2-1.3) 10/27/23 15:06
AST 31 U/L (17-59) 10/27/23 15:06
ALT 24 U/L (0-50) 10/27/23 15:06
Alkaline Phosphatase 69 U/L (38-126) 10/27/23 15:06
Total Protein 6.8 g/dl (6.3-8.2) 10/27/23 15:06
Albumin 4.5 g/dl (3.5-5.0) 10/27/23 15:06
Physical Exam
-
Gen: NAd
Abd: soft, approp ttp, incisions cdi, j-tube in place
--- NOTE | 2023-10-31 10:51 | PN.CDI ---
CDI
- -
CDI:
Physician Documentation Request
Admit Date: 10/27/23 17:56
Dear Doctor Bryan
OR report preoperative and postoperative diagnosis includes malnutrition.
RD notes states 'Per current clinical data no wt loss prior to admission...Spoke with RN who reports pt did not mention wt loss prior to admission'
To ensure the quality of the medical record, based on the above information and the recognized standards for malnutrition , could you please verify in your progress notes which of the following responses best reflects the patient's nutritional
status:
(Specify severity) Malnutrition is/was present and is a clinical diagnosis (please provide additional support in the medical record)
No nutritional deficiency - Malnutrition ruled out
Other (please specify)
[place] Criteria ([facility] Hospitalist 2017)
2 or more criteria must be present for either
non severe or severe malnutrition
Note that the criteria differs related to the
presence of an acute or chronic illness
Acute Illness Chronic Illness
Energy Intake Non Severe: <75% for >7 days Non Severe: <75% for >1 month
Severe: <50% for >5 days Severe: <75% for >1 month
Weight Loss Non Severe: 1-2% over 1 week Non Severe: 5% over 1 month
5% over 1 month 7.5% over 3 months
7.5% over 3 months 10% over 6 months
1 year N/A 20% over 1 year
Severe: >2% over 1 week Severe: >5% over 1 month
>5% over 1 month >7.5% over 3 months
>7.5% over 3 months >10% over 6 months
1 year N/A >20% over 1 year
Body Fat Non Severe: Mild Decrease Non Severe: Mild Loss
Severe: Moderate Decrease Severe: Severe Loss
Muscle Mass Non Severe: Mild Decrease Non Severe: Mild Loss
Severe: Moderate Decrease Severe: Severe Loss
Fluid Accumulation Non Severe: Mild Accumulation Non Severe: Mild Accumulation
Severe: Moderate to severe Severe: Moderate to severe
accumulation accumulation
Reduced Decision Unit Rn Strength Non Severe: N/A Non Severe: N/A
Severe: Measurably reduced Severe: Measurably reduced
Use of terms such as suspected, likely, concern for, or probable (associated with a specific diagnosis that is being evaluated, monitored, or treated as if it exists) are acceptable and can be coded in the inpatient setting, when documented at the
time of discharge.
Thank you,
Vicky Wright RN, BSN
CDI Specialist
tiger text
Please use your independent medical judgment in providing your response.
--- NOTE | 2023-10-31 10:55 | CM ---
Addendum entered by Quin Newman 10/31/23 14:53:
Orders received u [facility].
Per Claire, Carisa can see patient tomorrow 2:30 pm, supplies to be delivered between 2-2:30 pm.
Claire will call [facility].
updated, copy of script on chart.
Plan: d/c home tomorrow with [facility] and [facility] 12 noon.
Original Note:
Patient seen bedside.
Spoke with Claire from [facility].
Faxed enteral feed order form and Professor Of Literacy notes to [facility].
Picture of peg tube sent to [facility].
Claire will reach out to [facility] to coordinate care.
Spoke with patient and former spouse Julieta (via phone). Updated re progress.
Daughter Hayley will be in to see patient and can be updated as needed per Julieta.
Will wait to hear back from [facility] re insurance and start date.
Per Claire from [facility] she will be in to see patient.
Per Claire [facility] Professor Of Literacy will be able to follow post d/c to assist GI with orders.
Spoke with GI office yesterday, Dr Shantelle Gabriel from GI will write orders post d/c.( p# [phone]) as long as patient followed by capper machine operator.
Plan:home with [facility] and [facility] once coordination completed.
Plan: home with VN and enteral feeds
[facility] VN

[facility]
fax# [phone]
[2023-10-31 16:01] VITALS: BP 126/63
[2023-10-31] MEDS: LOVENOX 40 MG SC (17:19)
[2023-10-31] MEDS: TYLENOL ORAL SOLUTION 650 MG PO (21:59)
[2023-10-31] MEDS: NON-FORMULARY ITEM 1 UNIT PO (21:59)
[2023-10-31] MEDS: ZOFRAN 4 MG IV (21:59)
[2023-10-31] MEDS: FLUSH (NSS) 2 FLUSH IV (22:00)
[2023-10-31 23:32] VITALS: BP 141/74
[2023-11-01 07:38] VITALS: BP 161/86
[2023-11-01] MEDS: PROTONIX 40 MG PO (07:59)
[2023-11-01] MEDS: NAMENDA 5 MG PO (07:59)
[2023-11-01] MEDS: LEXAPRO 20 MG PO (07:59)
[2023-11-01] MEDS: ZESTRIL 20 MG PO (07:59)
--- NOTE | 2023-11-01 09:19 | CM ---
Addendum entered by Quin Newman 11/01/23 11:18:
IMM completed.
Original Note:
CM checked with [facility] this am, all set on their end.
[facility] requesting d/c by noon.
Equipment and enteral feeds to be delivered today by 2 pm, Carisa to be at patients home between 2-3 pm.
Plan: home with VN and enteral feeds
[facility] ([facility])

[facility]
fax# [phone]
[2023-11-01] MEDS: ZOFRAN 4 MG IV (09:27)
[2023-11-01] MEDS: FLUSH (NSS) 1 FLUSH IV (09:28)
--- NOTE | 2023-11-01 09:55 | W.PN.HOSP.TC ---
Addendum entered and electronically signed by Carla Nieves MD 11/12/23 08:41:
Memory issue
Original Note:
Today's Communication/Plan
-
dc to home/VN and infusion service for tube feeds
Assessment / Plan
Assessment / Plan
Assessment:
Dysphagia due to esophageal cancer (Stage 3 per family)
- s/p Laparoscopic jejunostomy tube placement 10/28. Follow GS recs
- is tolerating TF which are at goal
- will need home tube feeds setup, along with VN, formula, prescribing MD etc setup. CM assisting.
- meds: orally as tolerated
Essential HTN
- resume BP meds orally
- IV hydralazine prn
KAILEE on home CPAP
HLD - resume statin
anxiety/depression
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
Hyperkalemia - resolved
DVT ppx: Lovenox
Code: Full
More than 30 minutes spent in discharge including
Final examination of the patient
Summarizing hospital stay
Instructions for continuing care to all relevant caregivers
Preparation of discharge records, prescriptions, and referral forms
Total time spent (in minutes): 41
Anticipated Discharge: Today
Subjective/Interval History
-
Date of Service: November 01, 2023
tolerating TFs
Objective Data
-
Vital Signs:
Vital Signs
Temp Pulse Resp BP Pulse Ox
97.6 F 70 16 161/86 95
11/01/23 07:38 11/01/23 07:59 11/01/23 07:38 11/01/23 07:59 11/01/23 08:05
I&O
10/31/23 11/01/23 11/02/23
06:59 06:59 06:59
Intake Total 1320 / 1320 3230 / 3230
Output Total 300 / 300 480 / 480
Balance 1020 / 1020 2750 / 2750
Physical Exam
-
General: No Apparent Distress
HEENT: Normocephalic and Atraumatic
Respiratory: Negative Wheezes
Cardiac: Regular Rhythm and S1/S2
GI: Soft and Other (J tube)
Genito-urinary: No Costovertebral Tender
Musculoskeletal: No Edema
Neuro: AO x 3
Psych: Calm
Data Reviewed
-
Total Time Spent with Patient (in minutes): 42
Labs: Labs Reviewed by me
--- NOTE | 2023-11-01 09:59 | W.DS.TRANS ---
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
-
Discharge Instructions:
Discharge Diagnosis/Procedures dysphagia from esophageal cancer s/p J tube
placement
Diet Tube feeding
Activity No strenuous activity
Driving Restrictions No driving for 24 hours
Bathing Restrictions OK to Shower
Instructions: How to give a tube feeding
Stand-Alone Forms:
Changes to Home Medications: No
Discharge Medications:
DC Medications w/original date entered in [employer]
escitalopram oxalate 20 mg tablet 20 mg PO DAILY Depression 10/18/23
lisinopril 20 mg tablet 20 mg PO DAILY Blood Pressure 10/18/23
memantine 5 mg tablet 5 mg PO DAILY Dementia 10/18/23
ondansetron 4 mg disintegrating tablet 4 mg translingual DAILYPRN PRN nausea/vomiting 10/18/23
pantoprazole 40 mg tablet,delayed release 40 mg PO DAILY Gastrointestinal Issue 10/18/23
polyethylene glycol 3350 17 gram oral powder packet (Miralax) 8.5 g PO BID Constipation 10/18/23
rosuvastatin 5 mg tablet 5 mg PO DAILY High Cholesterol 10/18/23
sucralfate 100 mg/mL oral suspension 10 ml PO ACHS Gastrointestinal Issue 10/18/23
lorazepam 1 mg tablet 1 mg PO BIDPRN PRN anxiety 10/27/23
Home Medication Changes
Pending Results: No
Total time spent discharging patient (in min): 41
[2023-11-01 11:16] VITALS: BP 146/88
--- NOTE | 2023-11-02 09:12 | CM ---
Addendum entered by Quin Newman 11/02/23 10:39:
Per Ana Maria/[facility]- Per corner former email, they would be reaching out to patient.
Original Note:
Received TT from re patients requesting TC about missing tubing.
TC to Jean/Chest Painting Leader at [facility], left [phone]
TC to [facility]- [phone], spoke with Ana Maria, she will research and get back to me, someone will reach out to family.
--- NOTE | 2023-11-07 10:21 | PN.CDI ---
CDI
- -
CDI:
Physician Documentation Request
Admit Date: 10/27/23 17:56
Dear Doctor Ezequiel,
Patient presented when having trouble getting liquids down. He has been recently diagnosed with esophageal cancer.
Starting on 10/30 progress note states 'anxiety-depression replace ANALYST MARKET INTELLIGENCE PO Ativan with low dose IV Ativan PRN. holding Lexapro-hold memantine (for memory issues)'
Discharge summary medication list 'Memantine 5 mg tablet 5 mg PO DAILY Dementia...'
Please clarify the diagnosis associated with the medication listed above:
Memory issue
Dementia
Other
Use of terms such as suspected, likely, concern for, or probable (associated with a specific diagnosis that is being evaluated, monitored, or treated as if it exists) are acceptable and can be coded in the inpatient setting, when documented at the
time of discharge.
Thank you,
Vicky Wright RN, BSN
CDI Specialist
tiger text
Please use your independent medical judgment in providing your response.
== END 2023-11-01 11:39 | disposition home health service (06) | DRG 376 ==
LOC: 3 WEST ACU 17:56
PROVIDERS: Emergency Medicine; Registered Nurse; ADMITTING PHYSICIAN Internal Medicine; ATTENDING PHYSICIAN Internal Medicine; CONSULT PHYSICIAN Surgery; EMERGENCY PHYSICIAN Student in an Organized Health Care Education/Training Program; FAMILY PHYSICIAN Family Medicine
PROC: 0DHA4UZ Insertion of Feeding Device into Jejunum, Percutaneous Endoscopic Approach (ICD-10-PCS; 2023-10-29)
DX: C15.9 Malignant neoplasm of esophagus, unspecified (principal); F32.A Depression, unspecified; I10 Essential (primary) hypertension; R13.19 Other dysphagia; E78.00 Pure hypercholesterolemia, unspecified; E87.5 Hyperkalemia; G47.33 Obstructive sleep apnea (adult) (pediatric); K59.00 Constipation, unspecified; R41.3 Other amnesia; Z79.899 Other long term (current) drug therapy; Z91.041 Radiographic dye allergy status
CPT/HCPCS: 80048; 80053; 82962; 83735; 85025; 85027; 85610; 85730; 86850; 86900; 86901; 93005; 96374; 99284

== ENCOUNTER → 2023-11-08 08:36 | Outpatient (REF) | payer MEDICARE, OTHER, SELFPAY ==
[2023-11-08 08:45] VITALS: BP 100/55; BP_SYST 72
[2023-11-08] MEDS: ANCEF 10 IV (09:29)
[2023-11-08 09:35] VITALS: BP 112/68; BP_SYST 72
[2023-11-08 11:00] VITALS: BP 112/57
== END ==
LOC: RADI 08:36
PROVIDERS: ATTENDING PHYSICIAN Internal Medicine Hematology & Oncology; FAMILY PHYSICIAN Family Medicine
DX: C15.5 Malignant neoplasm of lower third of esophagus (principal)
CPT/HCPCS: 36561; 76937; 77001; 99152; 99153; C1788

== ENCOUNTER → 2024-01-23 12:16 | Outpatient (REF) | payer MEDICARE, OTHER, SELFPAY | LOC: RAD 12:16 | PROVIDERS: ATTENDING PHYSICIAN Surgery | DX: Z46.59 Encounter for fitting and adjustment of other gastrointestinal appliance and device (principal) | CPT/HCPCS: 49465 ==